=== PATIENT | male | born 1970 | race Caucasian/White ===

== ENCOUNTER → 2021-03-18 12:09 | Outpatient (CLI) | payer OTHER, SELFPAY ==
--- NOTE | 2021-03-18 | DI.MRI.S_ITS ---
PROCEDURE: MR HIP RT WO CON INDICATIONS: Pain in right hip TECHNIQUE: Noncontrast coronal T1 spin echo and STIR through the bony pelvis. Coronal and axial T2 fast spin echo with fat saturation, sagittal T1 spin echo, and oblique axial T2 fast spin echo with fat saturation through the hip. COMPARISON: None. FINDINGS: Image quality: Excellent. Bones and joints: There is a small region of moderate T2 signal elevation within the lateral aspect of the right femoral head and neck Bone marrow of the pelvic ring and proximal femurs demonstrates otherwise normal signal throughout. No intraosseous lesions or fractures. No avascular necrosis of the femoral heads. The visualized lower lumbar spine appears normally aligned. Tendons and ligaments: The gluteus medius and minimus tendons appear intact, without associated muscle atrophy. Mild T2 signal elevation adjacent to the femoral insertion sites of the right gluteus medius and minimus tendons. The nearby proximal iliotibial band also appears intact. The iliopsoas tendon appears intact, without adjacent bursal fluid collections or evidence for impingement syndrome. The origin of the hamstring tendon is intact at the ischial tuberosity, as well as the associated sacrotuberous ligament. The straight and reflected heads of the rectus femoris muscle origin appear intact, as well as the conjoint tendon, which demonstrates mild T2 signal elevation adjacent to the ischial origin. The ligamentum teres appears intact where visualized. Labrum and cartilage: There is degenerative tearing diffusely seen within the right hip labrum. Cartilage surface of the femoral head appears of normal thickness. The alpha angle of the femur is within normal limits at less than 55 degrees. Soft tissues: Visualized muscles demonstrate normal bulk and internal signal. Quadratus femoris muscle demonstrates no internal edema to suggest ischiofemoral impingement. The proximal sciatic neurovascular bundle appears normal adjacent to the hamstring tendons. No free pelvic fluid. Bladder wall thickness is normal. Genitourinary structures and bowel loops appear normal where visualized. IMPRESSION: 1. Small region of T2 signal elevation within the right femoral head and neck. This could represent contusion or stress injury in the appropriate clinical setting. No displaced fracture. 2. Degenerative tearing of the right hip labrum. 3. Insertional tendinitis of the right gluteus medius and minimus tendons. 4. Mild right ischiitis. Dictated by: Rancho Be M.D. on 03/18/2021 at 13:31 Approved by: Rancho Be M.D. on 03/18/2021 at 13:35
== END ==
PROVIDERS: PCP Family Medicine; Referring Provider Family Medicine; Visit Provider Family Medicine
DX: M25.551 Pain in right hip (principal); S73.101A Unspecified sprain of right hip, initial encounter
CPT/HCPCS: 73721

== ENCOUNTER → 2023-04-20 10:23 | Outpatient (CLI) | payer OTHER, SELFPAY | PROVIDERS: Referring Provider Surgery; Visit Provider Surgery | DX: I44.4 Left anterior fascicular block (principal) | CPT/HCPCS: 93005; 93010 ==

== ENCOUNTER → 2023-05-31 13:01 | Outpatient (CLI) | payer OTHER, SELFPAY ==
[2023-06-14 13:51] LABS: Plama Renin, LC/MS/MS 0.369
[2023-06-14 13:52] LABS: Aldosterone/Renin Activity Rat 4.3
== END ==
PROVIDERS: Referring Provider Internal Medicine Cardiovascular Disease; Visit Provider Internal Medicine Cardiovascular Disease
DX: I44.4 Left anterior fascicular block (principal); I10 Essential (primary) hypertension; R00.2 Palpitations
CPT/HCPCS: 36415; 82088; 82384; 84244

== ENCOUNTER 2023-08-11 11:25 | Day surgery (SDC) | payer OTHER, SELFPAY ==
--- NOTE | 2023-08-11 | PATH_ITS ---
[facility] Accession Number: [id number] No. of containers..01 Tissue . 01 Material submitted: . duodenum - DUODENUM . 01 Diagnosis: DUODENUM, BIOPSY: Duodenal mucosa with no diagnostic abnormality. Negative for active inflammation, features of sprue, dysplasia, or malignancy. MRV 08/16/2023 1418 Local . 01 Electronically signed: . Delma Townsend MD, Pathologist NPI- [id number] . 01 Gross description: . DUODENUM: Received in formalin are 4 fragment(s) of fernandes, soft tissue measuring 0.1 x 0.1 x 0.1 cm to 0.4 x 0.2 x 0.2 cm submitted entirely in 1 cassette(s) /CARMEN 08/15/2023 1857 Local . 01 Pathologist provided ICD-10: R10.9 . 01 CPT . 062471 Specimen Comment: A courtesy copy of this report has been sent to [phone] Performed at: 01 [facility] [address] [place] [address], [place], [place] [id number] MD Brett Ramos MD Phone: [phone]
--- NOTE | 2023-08-11 12:35 | PM.HP.1 ---
History of Present Illness History of Present Illness Date Patient Seen: 08/11/23 Time Patient Seen: 12:35 Chief complaint: EGD & Colonoscopy Narrative: 53M with anemia and rectal bleeding here for diagnostic EGD and colonoscopy. [facility] Social History (Updated 04/20/23 @ 09:57 by Lashaun Osorio MA) marital status: unmarried,single household members: spouse lives independently: Yes occupational status: previously employed Smoking Status: Former smoker alcohol intake: current substance use type: does not use Meds Home Medications and Allergies Home Medications Medication Instructions Recorded Confirmed Type atorvastatin 20 mg tablet 20 mg PO DAILY 04/20/23 08/11/23 History valsartan 80 mg tablet 80 mg PO DAILY 08/11/23 08/11/23 History Allergies Allergy/AdvReac Type Severity Reaction Status Date / Time No Known Drug Allergies Allergy Verified 08/11/23 12:09 Exam Narrative Exam Narrative: Gen-Adult man alert and oriented Abd-Soft non tender Ext-WWP Assessment & Plan Assessment and plan (1) Anemia: Qualifiers: Anemia type: unspecified type Qualified Code(s): D64.9 - Anemia, unspecified Status: Acute Assessment & Plan narrative: 53M with anemia and rectal bleeding here for diagnostic colonoscopy and possible hemorrhoidal banding. Overview of the procedure discussed. Procedural risks including hemorrhage, missed diagnosis intestinal injury discussed. Provides his consent to proceed.
[2023-08-11] MEDS: LACTATED RINGERS 1,000 ML 42 ML IV (12:48)
[2023-08-11 13:31] VITALS: BP 124/75; PULSE 77; RESP 16; TEMP 36.1; O2SAT 95
--- NOTE | 2023-08-11 13:36 | PM.OP.EC ---
Operative Date/Time/Diagnoses Date of procedure: 08/11/23 Time of procedure: 13:37 Pre-op diagnosis: Anemia Post-op diagnosis: other (Gastritis, duodenitis, internal hemorrhoids) Procedure & Clinicians Study performed: EGD, colonoscopy, hemorrhoidal banding, Same procedure as scheduled: Yes Indications: Anemia Surgeon: Naresh Duran Procedure Notes Procedure in detail: The history and physical was performed/updated and the patient is ASA class is 3. The procedure was discussed in detail with the patient. Potential risks complications including infection, bleeding, missed diagnosis, perforation, need for surgery, and were explained. Their questions were answered and informed consent was obtained. Patient placed in left lateral decubitus position. Time out was performed. Procedural sedation was administered by Anesthesia. A bite block was placed. the scope was inserted into the mouth and advanced through the esophagus and into the stomach. the pylorus was intubated and the duodenum was examined to the 2nd portion.. The scope was retroflexed within the stomach. The stomach was then decompressed and scope pulled back to the GE junction. The scope was then removed Examination began with a thorough inspection of the perianal area there was no evidence of fissures, fistulae, external hemorrhoids or cutaneous malignancy. The colonoscopy scope was then placed into the anal canal and was advanced to the cecum, which was identified by the ileocecal valve, the appendiceal orifice and the confluence of the taenia. The scope was then slowly withdrawn examining colon thoroughly in all directions, irrigating it of any residual stool. FINDINGS -linear ulcerations within the duodenum, mild gastritis with flecks of clot within the stomach. Biopsies of the duodenum obtained with forceps. -no colonic masses or polyps. -grade 3 internal hemorrhoids. Following completion of the colonoscopy we proceed with hemorrhoidal banding. The anoscope was placed and the right posterior and left lateral pedicles were were freely prolapsing and the tissue was grasped with the suction ligator and doubly ligated at their base. He tolerated the procedure well transferred to recovery in stable condition. The patient tolerated the procedure well. They will be discharged once criteria are met. The prep was of good/excellent quality. The withdrawl time was * minutes. Specimen(s): other (Duodenum) Impression: Gastritis, duodenitis, internal hemorrhoids Post-procedure Plan for aftercare: Omeprazole 20 mg twice daily for 1 month Disposition: same day surgery
[2023-08-11 13:41] VITALS: BP 133/97; PULSE 64; RESP 14; O2SAT 93
[2023-08-11] MEDS: OXYCODONE IR 5 MG TABLET PO ×2 (13:44→14:14)
[2023-08-11 13:52] VITALS: BP 153/98; PULSE 58; RESP 15; O2SAT 98
[2023-08-11] MEDS: ACETAMINOPHEN 325 MG TABLET 975 MG PO (15:10)
--- NOTE | 2023-08-11 15:26 | SUR.PHASEII ---
Discharge instructions reviewed including sitz bath.
== END 2023-08-11 15:15 | disposition home or self-care (01) ==
PROVIDERS: PCP Family Medicine; Referring Provider Surgery; Visit Provider Surgery
PROC: 0DJ08ZZ Inspection of Upper Intestinal Tract, Via Natural or Artificial Opening Endoscopic (ICD-10-PCS; CPT 43235; principal; 2023-08-11 12:30)
PROC: 0DJD8ZZ Inspection of Lower Intestinal Tract, Via Natural or Artificial Opening Endoscopic (ICD-10-PCS; CPT 45378; 2023-08-11 12:30)
DX: D64.9 Anemia, unspecified (principal); K26.9 Duodenal ulcer, unspecified as acute or chronic, without hemorrhage or perforation; K29.70 Gastritis, unspecified, without bleeding; K64.2 Third degree hemorrhoids
CPT/HCPCS: 43239; 46221; 45378; 93005; 93010; J2704